=== PATIENT | male | born 1970 | race Two or more races ===

== ENCOUNTER 2021-06-29 10:00 | Emergency (ER) | payer SELFPAY ==
[~2021-06-29] VITALS: Ht 165.1 cm; Wt 105.0 kg
[2021-06-29] MEDS ORDERED: cloNIDine HCL 0.1 MG TAB PO ONE (10:15)
[2021-06-29] MEDS ORDERED: ONDANSETRON ODT 4 MG TAB PO ONE (11:00)
[2021-06-29] MEDS ORDERED: ACETAMINOPHEN/CODEINE#3 (300/30mg) TAB PO ONE (11:00)
[2021-06-29] MEDS ORDERED: ACE3T PO (12:00)
[2021-06-29 12:09] VITALS: BP 139/94
== END 2021-06-29 12:05 | disposition home or self-care (01) ==
LOC: ER 10:00
DX: S83.92XA Sprain of unspecified site of left knee, initial encounter (principal); I10 Essential (primary) hypertension; M13.862 Other specified arthritis, left knee; X58.XXXA Exposure to other specified factors, initial encounter; Y93.89 Activity, other specified; Y92.89 Other specified places as the place of occurrence of the external cause; Y99.8 Other external cause status
CPT/HCPCS: 73562; 99284; Q0162; 29505